=== PATIENT | male | born 1980 | race Caucasian/White ===

== ENCOUNTER 2018-05-05 13:26 | Emergency (ER) | payer OTHER ==
--- NOTE | 2018-05-05 13:44 | ED ---
HPI Chest Pain - HPI Summary HPI Summary: 38 y/o male presents to the ED c/o constant CP for several weeks. CP described as a pressure, diffuse throughout. Intermittently the pain radiates to the jaw and neck. CP not associated with exertion. Pt c/o "clamminess". Associated sx: hand numbness, lightheaded, diaphoresis. Denies previous episodes. Past medications reviewed. FHx heart disease - father and grandfather. - History of Current Complaint Chief Complaint: EDChestPainROMI Hx Obtained From: Patient Onset/Duration: Started Weeks Ago Timing: Intermittent Pain Intensity: 4 Pain Scale Used: 0-10 Numeric Chest Pain Location: Diffuse Chest Pain Radiates: Yes Chest Pain Radiates To:: Jaw, Neck Character: Pressure/Squeezing Aggravating Factor(s): Nothing Alleviating Factor(s): Nothing Associated Signs and Symptoms: Positive: Chest Pain, Numbness, Lightheadedness, Diaphoresis. Negative: Nausea - Allergy/Home Medications Allergies/Adverse Reactions: Allergies Allergy/AdvReac Type Severity Reaction Status Date / Time No Known Allergies Allergy Verified 05/05/18 13:48 Home Medications: Home Medications Omeprazole Magnesium [Prilosec] 10 mg PO EVERY OTHER DAY PRN 05/05/18 [History Confirmed 05/05/18] PMH/Surg Hx/FS Hx/Imm Hx Previously Healthy: No Cardiovascular History: Denies: Hx Congestive Heart Failure Respiratory History: Denies: Hx Chronic Obstructive Pulmonary Disease (COPD) Infectious Disease History: No Infectious Disease History: Denies: Traveled Outside the [place] in Last 30 Days - Family History Known Family History: Positive: Cardiac Disease - father and grandfather - Social History Lives: With Family Hx Substance Use: Yes Substance Use Type: Reports: Marijuana Review of Systems Positive: Skin Diaphoresis Eyes: Negative ENT: Negative Positive: Chest Pain Respiratory: Negative Gastrointestinal: Negative Genitourinary: Negative Musculoskeletal: Negative Skin: Negative Neurological: Other - lightheadedness Positive: Numbness. Negative: Headache Psychological: Normal All Other Systems Reviewed And Are Negative: No Physical Exam - Summary Physical Exam Summary: Alert, conversive, nontoxic appearing Skin: Warm, dry, no mottling, no rashes, no contusions HEENT: EOMI, PERRL, moist mucous membranes Neck: No masses on the neck, supple Respiratory: Clear to auscultation, breath sounds present, no rales, no rhonchi , no wheezes Cardiovascular: RRR, pulses are symmetrical in both lower and upper extremities Abdomen: Soft, non-tender Bowel Sounds: Present Musculoskeletal: No CVA tenderness, no obvious deformity, moving all extremities in a grossly normal manner Neurological: A&Ox3, CN II-XII Intact, moving all extremities symmetrically Psychiatric: Normal affect and mood Triage Information Reviewed: Yes Vital Signs On Initial Exam: Initial Vitals Temp Pulse Resp BP Pulse Ox 98.9 F 73 20 162/93 99 05/05/18 13:31 05/05/18 13:31 05/05/18 13:31 05/05/18 13:31 05/05/18 13:31 Vital Signs Reviewed: Yes Diagnostics - Vital Signs Vital Signs Temp Pulse Resp BP Pulse Ox 05/05/18 13:31 98.9 F 73 20 162/93 99 - Laboratory Result Diagrams: 05/05/18 14:00 05/05/18 14:00 Lab Statement: Any lab studies that have been ordered have been reviewed, and results considered in the medical decision making process. - Radiology CXR Xray Interpretation: No Acute Changes - No active cardiopulmonary disease Radiology Interpretation Completed By: Radiologist - Additional Comments Diagnostic Additional Comments: 1 EKG - SR @ 81 BPM. Normal QRSD, QTc, normal axis, No ST T wave changes. Re-Evaluation - Re-Evaluation 1 Re-Evaluation Time: 17:00 Comment: discuss test results and findings. plan to d/c Chest Pain Course/Dx - Course Assessment/Plan: CP for several weeks. CXR NAD.EKG - SR @ 81 BPM. Normal QRSD, QTc, normal axis, No ST T wave changes. At 15:15 called lab, lab should read in results shortly. Trop 0.00. Potassium 3.4. Pt will be d/c home with f/u with outpatient stress test. - Diagnoses Provider Diagnoses: Chest pain Discharge - Sign-Out/Discharge Documenting (check all that apply): Patient Departure - Discharge Plan Condition: Stable Disposition: HOME Patient Education Materials: Chest Pain (ED) Referrals: Raffy James MD [Medical Doctor] - Additional Instructions: Take 81mg of aspirin daily. return if worse or any new symptoms. It is important to follow up with your primary care physician and discuss an outpatient cardiac stress test. Exercise and eat healthy. - Billing Disposition and Condition Condition: STABLE Disposition: Home - Attestation Statements Document Initiated by Scribe: Yes Documenting Scribe: Felipe Doyle Provider For Whom Meche is Documenting (Include Credential): Claribel Holden MD Scribe Attestation: Felipe Lobo, scribed for Claribel Holden MD on 05/07/18 at 1109. Scribe Documentation Reviewed: Yes Provider Attestation: The documentation as recorded by the Felipe bernal accurately reflects the service I personally performed and the decisions made by me, Claribel Holden MD
--- NOTE | 2018-05-05 14:14 | RAD ---
HISTORY: chest pain COMPARISONS: None VIEWS: 1: frontal portable view of the chest at 1:55 PM FINDINGS: LINES AND TUBES: None. CARDIOMEDIASTINAL SILHOUETTE: The cardiomediastinal silhouette is normal for portable technique. PLEURA: The costophrenic angles are sharp. No pleural abnormalities are noted. LUNG PARENCHYMA: The lungs are clear. ABDOMEN: The upper abdomen is clear. There is no subphrenic gas. BONES AND SOFT TISSUES: No bone or soft tissue abnormalities are noted. IMPRESSION: NO ACTIVE CARDIOPULMONARY DISEASE.
[2018-05-05 15:12] LABS: ABS Basophils 0 10^3/ul (0-0.2); ABS Eosinophils 0.3 10^3/ul (0-0.6); ABS Lymphocytes 1.9 10^3/ul (1.0-4.8); ABS Monocytes 0.8 10^3/ul (0-0.8); ABS Neutrophils 4.9 10^3/ul (1.5-7.7); ABS Nucleated RBC 0 10^3/ul; Eosinophil % 3.5 % (0-6); Hematocrit 41 % (42-52); Hemoglobin 14.1 g/dl (14.0-18.0); Lymphocyte % 24.4 % (25-47); Mean Corpuscular HGB Conc 35 g/dl (31-36); Mean Corpuscular Hemoglobin 33 pg (27-31); Mean Corpuscular Volume 94 fL (80-94); Mean Platelet Volume 8.9 um3 (7.4-10.4); Nucleated Red Blood Cells % 0; Platelet Count 227 10^3/ul (150-450); Red Cell Distribution Width 13 % (10.5-15)
[2018-05-05 15:25] LABS: EGFR Non-African American 92.1 (>60)
[2018-05-05 17:30] VITALS: BP 121/79
== END 2018-05-05 17:31 | disposition home or self-care (01) ==
LOC: ED 13:26
DX: R07.89 Other chest pain (principal)
CPT/HCPCS: 36415; 71045; 80053; 83735; 84443; 84484; 85025; 85379; 93005; 99283